=== PATIENT | male | born 1990 | race Caucasian/White ===

== ENCOUNTER 2018-10-23 23:53 | Emergency (ER) | payer BC, OTHER ==
[2018-10-24 00:01] VITALS: RESP 16
[2018-10-24] MEDS ORDERED: SODIUM CHLORIDE 0.9% 1,000 ML IV STA (00:19)
--- NOTE | 2018-10-24 00:24 | ED ---
General Adult HPI - General Source: patient, RN notes reviewed, old records reviewed Mode of arrival: ambulatory Limitations: no limitations <John Bustillo - Last Filed: 10/24/18 04:16> <Babs Adams - Last Filed: 10/24/18 07:08> - General Chief complaint: Urogenital Stated complaint: Male Time Seen by Provider: 10/23/18 23:58 - History of Present Illness Initial comments: 28-year-old male patient past medical history of urinary tract infection, reported glomerulonephritis as an adolescent presents to ED with hematuria and dysuria. Patient additionally complains of some generalized low back pain. Patient was seen for these symptoms on 10/21 at urgent care and was diagnosed with a urinary tract infection and started on Bactrim. Patient has been taking Bactrim as prescribed. Patient reports that the symptoms are not improved, and is continuing to experience dysuria, hematuria. Patient additionally complains of urgency. Patient denies all other complaints. Denies any abdominal pain. Denies any chest pain or shortness of breath. Systemic: Pt denies fatigue, myalgia, fever/chills, rash. Pt denies weakness, night sweats, weight loss. Neuro: Pt denies headache, visual disturbances, syncope or pre-syncope. HEENT: Pt denies ocular discharge or irritation, otalgia, rhinorrhea, pharyngitis or notable lymphadenopathy. Cardiopulmonary: Pt denies chest pain, SOB, heart palpitations, dyspnea on exertion. Abdominal/GI: Pt denies abdominal pain, n/v/d. : Denies new onset urinary or bowel incontinence. MSK: Pt denies myalgia, loss of strength or function in extremities. Neuro: Pt denies new onset weakness, paresthesias. (John Bustillo) - Related Data Home Medications Medication Instructions Recorded Confirmed Sulfamethox-Tmp 800-160Mg [Bactrim 1 tab PO Q12HR 10/24/18 10/24/18 DS 800-160 mg] Previous Rx's Medication Instructions Recorded Ciprofloxacin HCl [Cipro] 500 mg PO Q12HR 7 Days #14 day 10/24/18 Allergies Allergy/AdvReac Type Severity Reaction Status Date / Time No Known Allergies Allergy Verified 10/24/18 00:01 Review of Systems ROS Other: All systems not noted in ROS Statement are negative. <John Bustillo - Last Filed: 10/24/18 04:16> ROS Other: All systems not noted in ROS Statement are negative. <Babs Adams - Last Filed: 10/24/18 07:08> ROS Statement: Those systems with pertinent positive or pertinent negative responses have been documented in the HPI. Past Medical History Past Medical History: No Reported History History of Any Multi-Drug Resistant Organisms: None Reported Past Surgical History: No Surgical Hx Reported Past Psychological History: No Psychological Hx Reported Smoking Status: Never smoker Past Alcohol Use History: Occasional Past Drug Use History: None Reported <John Bustillo - Last Filed: 10/24/18 04:16> General Exam Limitations: no limitations <John Bustillo - Last Filed: 10/24/18 04:16> <Babs Adams - Last Filed: 10/24/18 07:08> - General Exam Comments Initial Comments: Constitutional: NAD, AOX3, Pt has pleasant affect. HEENT: NC/AT, trachea midline, neck supple, no lymphadenopathy. Posterior pharynx non erythematous, without exudates. External ears appear normal, without discharge. Mucous membranes moist. Eyes PERRLA, EOM intact. There is no scleral icterus. No pallor noted. Cardiopulmonary: RRR, no murmurs, rubs or gallops, no JVD noted. Lungs CTAB in anterior and posterior kim. No peripheral edema. Abdominal exam: Abdomen soft and non-distended. Abdomen non-tender to palpation in all 4 quadrants. Bowel sounds active in LLQ. No hepatosplenomegaly. No ecchymosis. CVA tenderness negative, no flank tenderness, no tenderness to palpation lumbar spine. Neuro: CN II-XII grossly intact. No nuchal rigidity. MSK: No posterior calf tenderness bilaterally, homans sign negative bilaterally. Posterior tibialis and radial pulse +2 bilaterally. Sensation intact in upper and lower extremities. Full active ROM in upper and lower extremities, 5/5 stregnth. (John Bustillo) Vital Signs 10/23/18 10/24/18 10/24/18 23:57 01:29 02:56 Temperature 98.0 F 98.2 F Pulse Rate 102 H 98 90 Respiratory 16 16 16 Rate Blood Pressure 123/77 132/75 120/63 O2 Sat by Pulse 99 99 98 Oximetry Medical Decision Making - Lab Data Result diagrams: 10/24/18 00:40 10/24/18 00:40 <John Bustillo - Last Filed: 10/24/18 04:16> - Lab Data Result diagrams: 10/24/18 00:40 10/24/18 00:40 <Babs Adams - Last Filed: 10/24/18 07:08> - Medical Decision Making 28-year-old male patient past medical history of urinary tract infection, reported glomerulonephritis as an adolescent presents to ED with hematuria and dysuria. Patient additionally complains of some generalized low back pain. Patient was seen for these symptoms on 10/21 at urgent care and was diagnosed with a urinary tract infection and started on Bactrim. Patient has been taking Bactrim as prescribed. Patient reports that the symptoms are not improved, and is continuing to experience dysuria, hematuria. Patient additionally complains of urgency. Patient denies all other complaints. Denies any abdominal pain. Denies any chest pain or shortness of breath. Pt VSS, afebrile. Physical exam did not display acute pathology. CVA tenderness negative, no flank tenderness, no tenderness to palpation lumbar spine. Laboratory investigations revealed mild leukocytosis of 14.1. CMP non-impressive. Creatinine kinase within normal limits. UA displayed +2 protein, large leuk esterase, 30 red blood cells , greater than 180 white blood cells. Non contrast CT displayed bladder wall thickening, nonobstructing left renal calculi, no other acute process. Patient received 1 g of Rocephin in ED. Patient to be discharged with 7 days of ciprofloxacin, patient to follow up with urologist tomorrow. Patient to follow up with primary care provider in 1-2 days. Patient to return to ED if new signs symptoms develop or condition worsens in any way, strict return precautions discussed. Patient verbalized understanding. Case discussed in depth with Dr. Adams. (John Bustillo) I was available for consultation in the emergency department. The history and physical exam were done by the midlevel provider. I was consulted for this patient's care. I reviewed the case with the midlevel provider and based on their presentation of the patient, I agree with the assessment, medical decision making and plan of care as documented. (Adams,Babs P) - Lab Data Lab Results 10/24/18 10/24/18 10/24/18 Range/Units 00:25 00:40 00:40 WBC 14.1 H (3.8-10.6) k/uL RBC 5.09 (4.30-5.90) m/uL Hgb 14.3 (13.0-17.5) gm/dL Hct 43.5 (39.0-53.0) % MCV 85.3 (80.0-100.0) fL MCH 28.1 (25.0-35.0) pg MCHC 32.9 (31.0-37.0) g/dL RDW 13.5 (11.5-15.5) % Plt Count 220 (150-450) k/uL Neutrophils % 69 % Lymphocytes % 21 % Monocytes % 4 % Eosinophils % 4 % Basophils % 0 % Neutrophils # 9.8 H (1.3-7.7) k/uL Lymphocytes # 2.9 (1.0-4.8) k/uL Monocytes # 0.6 (0-1.0) k/uL Eosinophils # 0.5 (0-0.7) k/uL Basophils # 0.1 (0-0.2) k/uL Sodium 140 (137-145) mmol/L Potassium 3.9 (3.5-5.1) mmol/L Chloride 105 (98-107) mmol/L Carbon Dioxide 25 (22-30) mmol/L Anion Gap 10 mmol/L BUN 13 (9-20) mg/dL Creatinine 1.02 (0.66-1.25) mg/dL Est GFR (CKD-EPI)AfAm >90 (>60 ml/min/1.73 sqM) Est GFR (CKD-EPI)NonAf >90 (>60 ml/min/1.73 sqM) Glucose 108 H (74-99) mg/dL Calcium 9.5 (8.4-10.2) mg/dL Total Bilirubin 0.6 (0.2-1.3) mg/dL AST 34 (17-59) U/L ALT 58 (21-72) U/L Alkaline Phosphatase 59 (38-126) U/L Creatine Kinase 81 (55-170) U/L Total Protein 8.0 (6.3-8.2) g/dL Albumin 4.4 (3.5-5.0) g/dL Urine Color Light Red Urine Appearance Cloudy (Clear) Urine pH 6.5 (5.0-8.0) Ur Specific [place] 1.004 (1.001-1.035) Urine Protein 2+ H (Negative) Urine Glucose (UA) Negative (Negative) Urine Ketones Negative (Negative) Urine Blood Large H (Negative) Urine Nitrite Negative (Negative) Urine Bilirubin Negative (Negative) Urine Urobilinogen <2.0 (<2.0) mg/dL Ur Leukocyte Esterase Large H (Negative) Urine RBC 38 H (0-5) /hpf Urine WBC >182 H (0-5) /hpf Urine WBC Clumps Few H (None) /hpf Ur Squamous Epith Cells <1 (0-4) /hpf Urine Bacteria Moderate H (None) /hpf Disposition Is patient prescribed a controlled substance at d/c from ED?: No Time of Disposition: 02:49 <John Bustillo - Last Filed: 10/24/18 04:16> <Babs Adams - Last Filed: 10/24/18 07:08> Clinical Impression: Urinary tract infection, Renal calculi Disposition: HOME SELF-CARE Condition: Stable Instructions (If sedation given, give patient instructions): Kidney Stones (ED) , Urinary Tract Infection in Men (ED) Additional Instructions: Patient to adhere to previously discussed treatment plan and will take medication(s) as directed. Patient to follow up with PCP in 1-2 days. Patient to return to ED if symptoms do not improve. Please call urologist tomorrow. Please follow-up with primary care provider in 1-2 days. Please return to emergency Department if condition worsens in any way or if new signs or symptoms develop. Prescriptions: Ciprofloxacin HCl [Cipro] 500 mg PO Q12HR 7 Days #14 day Referrals: Carlos Shelley MD [Primary Care Provider] - 1-2 days Steffen Vaughn MD [STAFF PHYSICIAN] - 1-2 days
[2018-10-24 00:44] LABS: Appearance,Urine Cloudy (Clear); Bacteria,Urine Moderate /hpf; Bilirubin,Urine Negative (Negative); Blood,Urine Large (Negative); Color,Urine Light Red; Glucose,Urine (UA) Negative (Negative); Ketones,Urine Negative (Negative); Leukocyte Esterase,Urine Large (Negative); Nitrite,Urine Negative (Negative); PH, Urine 6.5 (5.0-8.0); Protein,Urine 2+ (Negative); RBC,Urine 38 /hpf (0-5); Specific Gravity,Urine 1.004 (1.001-1.035); Squamous Epithelial Cell,Urine <1 /hpf (0-4); Urobilinogen,Urine <2.0 mg/dL (<2.0)
[2018-10-24 01:05] LABS: Basophils # (A) 0.1 k/uL (0-0.2); Basophils % (A) 0 %; Eosinophils # (A) 0.5 k/uL (0-0.7); Eosinophils % (A) 4 %; HCT 43.5 % (39.0-53.0); HGB 14.3 gm/dL (13.0-17.5); Lymphocytes # (A) 2.9 k/uL (1.0-4.8); Lymphocytes % (A) 21 %; MCH 28.1 pg (25.0-35.0); MCHC 32.9 g/dL (31.0-37.0); MCV 85.3 fL (80.0-100.0); Mean Platelet Volume 6.1; Monocytes # (A) 0.6 k/uL (0-1.0); Monocytes % (A) 4 %; Neutrophils # (A) 9.8 k/uL (1.3-7.7); Neutrophils % (A) 69 %; Platelet Count 220 k/uL (150-450); RBC 5.09 m/uL (4.30-5.90); RDW 13.5 % (11.5-15.5); WBC 14.1 k/uL (3.8-10.6)
[2018-10-24 01:16] LABS: ALT 58 U/L (21-72); AST 34 U/L (17-59); Albumin 4.4 g/dL (3.5-5.0); Alkaline Phosphatase 59 U/L (38-126); Anion Gap 10 mmol/L; Blood Urea Nitrogen 13 mg/dL (9-20); Calcium 9.5 mg/dL (8.4-10.2); Carbon Dioxide 25 mmol/L (22-30); Chloride 105 mmol/L (98-107); Creatine Kinase 81 U/L (55-170); Glucose 108 mg/dL (74-99); Potassium 3.9 mmol/L (3.5-5.1); Sodium 140 mmol/L (137-145); Total Bilirubin 0.6 mg/dL (0.2-1.3)
[2018-10-24 01:30] VITALS: TEMP 98.2
--- NOTE | 2018-10-24 02:20 | CT ---
EXAM: CT Abdomen and Pelvis Without Intravenous Contrast CLINICAL HISTORY: ITS.REASON CT Reason: Pain TECHNIQUE: Axial computed tomography images of the abdomen and pelvis without intravenous contrast. CTDI is 7.50 mGy and DLP is 378.90 mGy-cm. This CT exam was performed using one or more of the following dose reduction techniques: automated exposure control, adjustment of the mA and/or kV according to patient size, and/or use of iterative reconstruction technique. COMPARISON: No relevant prior studies available. FINDINGS: Lung bases: Unremarkable. No mass. No consolidation. ABDOMEN: Liver: Unremarkable. Gallbladder and bile ducts: Unremarkable. No calcified stones. No ductal dilation. Pancreas: Unremarkable. No ductal dilation. Spleen: Aorta, spleen, pancreas, and gallbladder are unremarkable. Few calcified liver granulomas. Adrenals: Unremarkable. No mass. Kidneys and ureters: Mild hydronephrosis bilaterally, right worse left. No definite radiopaque obstructing calculus. Couple of punctate nonobstructing calyceal calculi involving the left kidney. Stomach and bowel: Fluid within nondistended loops of small bowel and within stomach without bowel wall thickening or surrounding inflammation can be normal or can be seen with gastroenteritis in the right clinical setting. PELVIS: Appendix: No appendicitis, inflammatory changes of bowel or bowel obstruction. Bladder: Bladder wall thickening. Correlate with urinalysis to exclude cystitis. No stones. Reproductive: Unremarkable as visualized. ABDOMEN and PELVIS: Intraperitoneal space: No free fluid. No free air. Bones/joints: No acute fracture. No dislocation. Soft tissues: Unremarkable. Vasculature: Unremarkable. No abdominal aortic aneurysm. Lymph nodes: Unremarkable. No enlarged lymph nodes. IMPRESSION: Bladder wall thickening. Correlate with urinalysis to exclude cystitis. Couple of punctate nonobstructing calyceal calculi involving the left kidney. Fluid within nondistended loops of small bowel and within stomach without bowel wall thickening or surrounding inflammation can be normal or can be seen with gastroenteritis in the right clinical setting. No other acute or inflammatory disease or bowel obstruction.
[2018-10-24 02:57] VITALS: BP 120/63; PULSE 90
== END 2018-10-24 02:56 | disposition home or self-care (01) ==
LOC: EC 23:53
DX: N39.0 Urinary tract infection, site not specified (principal); N20.0 Calculus of kidney
CPT/HCPCS: 36415; 74176; 80053; 81001; 82550; 85025; 87086; 96361; 96365; 99284

== ENCOUNTER → 2018-11-11 | Outpatient (CLI) | payer BC ==
[2018-11-11 15:29] LABS: Blood Urea Nitrogen 15 mg/dL (9-20)
--- NOTE | 2018-11-12 08:01 | CT ---
EXAMINATION TYPE: CT abdomen pelvis w con DATE OF EXAM: 11/11/2018 COMPARISON: CT abdomen and pelvis October 24, 2018 HISTORY: Hydronephrosis. Hx e coli, hematuria CT DLP: 947 mGycm, Automated Exposure Control for Dose Reduction was Utilized. CONTRAST: CT scan of the abdomen and pelvis is performed with oral and with IV Contrast, patient injected with 100 mL of Isovue 300. FINDINGS: LUNG BASES: No significant abnormality is appreciated. LIVER/GB: Single calcification posterior right hepatic lobe axial image 21 incidentally noted. PANCREAS: No significant abnormality is seen. SPLEEN: No significant abnormality is seen. ADRENALS: No significant abnormality is seen. KIDNEYS: There is symmetric cortical medullary uptake and excretion from both kidneys with persistent mild right-sided hydronephrosis. No obstructing calculus identified on this or prior study. There is interval improvement in mild abnormal concentric bladder wall thickening from prior study. Bladder i s mildly distended slightly more prominent on current exam versus prior. Previously visualized 1 to 2 mm calculus upper to mid pole level left kidney is less well-seen on current study because of IV con trast. BOWEL: No significant abnormality is seen. PROSTATE/SEMINAL VESICLES: Prostate gland is upper limits of normal in size, prominent for patient's age. LYMPH NODES: No greater than 1cm abdominal or pelvic lymph nodes are appreciated. OSSEOUS STRUCTURES: Spine is straightened on sagittal images. OTHER: No significant additional abnormality is seen. IMPRESSION: Interval improvement in bladder wall thickening consistent with resolving acute cystitis. Persistent mild right-sided hydronephrosis without obstructing calculus or delayed excretion. Consid er vesicoureteral reflux as possible etiology.
== END | disposition home or self-care (01) ==
LOC: RADCTMAIN 14:50
PROVIDERS: ATTEND Urology
DX: N13.30 Unspecified hydronephrosis (principal)
CPT/HCPCS: 82565; 84520; 74177; Q9967